=== PATIENT | male | born 1985 | race Caucasian/White ===

== ENCOUNTER 2024-02-01 01:42 | Observation (INO) | payer OTHER ==
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
[2024-02-01] MEDS: PROPOFOL 10 MG/ML 20 ML VIAL IV ONE ×2 (02:15→02:25)
[2024-02-01] MEDS ORDERED: NALOXONE 0.4 MG/ML 1 ML VIAL IV PRN (02:49)
[2024-02-01] MEDS ORDERED: ONDANSETRON 4 MG/2 ML VIAL IVP PRN (02:49)
[2024-02-01] MEDS: SODIUM CHLORIDE 0.9% 1,000 ML IV STA ×2 (02:52→03:55)
[2024-02-01] MEDS: HYDROmorphone 1 MG/ML 1 ML SYRINGE IVP STA (03:19)
[2024-02-01 04:20] LABS: Basophils # (A) 0.1 k/uL (0-0.2); Basophils % (A) 1 %; Eosinophils # (A) 0.1 k/uL (0-0.7); Eosinophils % (A) 1 %; HCT 39.8 % (39.0-53.0); Lymphocytes # (A) 1.2 k/uL (1.0-4.8); Lymphocytes % (A) 10 %; MCH 29.6 pg (25.0-35.0); MCHC 32.6 g/dL (31.0-37.0); MCV 90.9 fL (80.0-100.0); Mean Platelet Volume 9.7; Monocytes # (A) 0.9 k/uL (0-1.0); Monocytes % (A) 8 %; Neutrophils % (A) 79 %; Platelet Count 156 k/uL (150-450); RBC 4.38 m/uL (4.30-5.90); RDW 13.4 % (11.5-15.5); WBC 11.4 k/uL (3.8-10.6)
[2024-02-01 04:32] LABS: INR 0.9 (<1.2); Partial Thromboplastin Time 22.2 sec (22.0-30.0); Prothrombin Time 10.2 sec (10.0-12.5)
[2024-02-01 04:34] LABS: ALT 28 U/L (4-49); AST 34 U/L (17-59); African American GFR (CKD) >90 (>60 ml/min/1.73 sqM); Albumin 4.2 g/dL (3.5-5.0); Alkaline Phosphatase 62 U/L (38-126); Anion Gap 6 mmol/L; Blood Urea Nitrogen 24 mg/dL (9-20); Carbon Dioxide 24 mmol/L (22-30); Chloride 108 mmol/L (98-107); Glucose 113 mg/dL (74-99); Magnesium 1.9 mg/dL (1.6-2.3); Non-African American GFR(CKD) >90 (>60 ml/min/1.73 sqM); Phosphorus 3.8 mg/dL (2.5-4.5); Potassium 4.3 mmol/L (3.5-5.1); Sodium 138 mmol/L (137-145); Total Bilirubin 0.5 mg/dL (0.2-1.3); Total Protein 6.3 g/dL (6.3-8.2)
--- NOTE | 2024-02-01 04:42 | XR ---
EXAM: XR Right Shoulder Complete, 2 or More Views CLINICAL HISTORY: ITS.REASON XR Reason: reduction TECHNIQUE: Two or more views of the right shoulder. COMPARISON: No relevant prior studies available. IMPRESSION: Persistent shoulder dislocation with humeral head fracture fragment
[2024-02-01] MEDS: HYDROmorphone 1 MG/ML 1 ML SYRINGE IVP PRN (06:18)
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
[2024-02-01] MEDS ORDERED: ROPIVACAINE 5 MG/ML 30 ML VIAL ONE (08:17)
[2024-02-01] MEDS ORDERED: fentaNYL (PF) 50 MCG/ML 2 ML AMP ONE (08:17)
[2024-02-01] MEDS ORDERED: DEXAMETHASONE SOD PHOSPHATE 4 MG/ML 1 ML VIAL ONE (08:17)
[2024-02-01] MEDS ORDERED: PROPOFOL 10 MG/ML 20 ML VIAL IV ONE (08:17)
[2024-02-01] MEDS: SODIUM CHLORIDE 0.9% 1,000 ML IV ONE (08:17)
[2024-02-01] MEDS ORDERED: MIDAZOLAM 2 MG/2 ML VIAL ONE (08:17)
[2024-02-01] MEDS ORDERED: LIDOCAINE 1% INJ 10MG/ML (20 ML MDV) ONE (08:17)
--- NOTE | 2024-02-01 08:36 | P.ANPRN ---
Procedure Note - Anesthesia - Nerve Block Performed Right Interscalene Single Time Out Performed: Yes Date of Procedure: 02/01/24 Procedure Start Time: 07:50 Procedure Stop Time: 07:55 Location of Patient: PreOp Indication: Acute Post-Operative Pain, Requested by Surgeon Sedation Type: Awake Preparation: Sterile Prep, Sterile Dressing Position: Sitting Catheter: None Needle Types: Facet Needle Gauge: 21 Ultrasound used to visualize needle placement: Yes Ultrasound used to observe medication spread: Yes Injectate: 0.5% Ropivacaine (see comment for volume) (20 ml + decadron 4 mg) Blood Aspirated: No Pain Paresthesia on Injection Noted: No Resistance on Injection: Normal Image Stored and Saved: Yes Events: Uneventful and Well Tolerated
--- NOTE | 2024-02-01 08:52 | P.OP ---
Date of Procedure: 02/01/24 Preoperative Diagnosis: Current Active Problems Fracture of greater tuberosity of right humerus (Acute) Anterior dislocation of right shoulder (Acute) Hill Sachs deformity, right (Acute) Dislocation of shoulder region (Acute) Incarceration (Acute) Postoperative Diagnosis: Current Active Problems Fracture of greater tuberosity of right humerus (Acute) Anterior dislocation of right shoulder (Acute) Hill Sachs deformity, right (Acute) Dislocation of shoulder region (Acute) Incarceration (Acute) Procedure(s) Performed: 1. Closed reduction under general anesthesia right glenohumeral joint with fluoroscopy 2. application sling and swath RUE Implants: None Anesthesia: GETA Surgeon: Jarrett Chen Estimated Blood Loss (ml): 0 IV fluids (ml): 100 Urine output (ml): 0 Pathology: none sent Condition: stable Disposition: PACU Indications for Procedure: 38 yo male presents with right shoulder dislocation s/p multiple relocation attempts at outside hospital and here at [facility] unsuccessful. He presents with c/o right shoulder pain and deformity. We discussed risks and benefits. Pt seen in pre op area and all pre op protocols followed. He received a block of his RUE by anesthesia. He is ready and willing to proceed with procedure. Description of Procedure: The patient was seen and examined in the preoperative area. All preoperative protocols were followed. Informed consent was obtained risks and benefits of the procedure were discussed at length. Risks including bleeding infection damage to the surrounding tissue and risk of reoperation were discussed with the patient. Risk of anesthesia up to and including was a discussed with the patient. These are outlined in the risk reviewed. They were willing to accept these risks and all of the risks of surgery. The patient was seen and evaluated by the anesthesia team who deemed them fit for surgery. The site was marked, the patient was willing to proceed with the procedure. The patient was transferred to the operative suite by the Department of anesthesia. There were then drifted off to sleep by the department of anesthesia and Regional block with LMA anesthesia was used. Once adequate anesthesia had been obtained the patient was carefully transferred to the operative bed. All bony prominences were padded accordingly. SCDs were placed on the nonoperative lower extremities. Arms were well padded. right upper extremity was exposed a sheet was placed around the patient's torso. Preoperative briefing was done with the operative team and everyone was ready for the procedure to start. Timeout was then performed and all parties in agreement with the procedure to be performed. Fluoroscopy was used to localize the shoulder and visualize the dislocation is anterior dislocation which is personally inferior glenoid due to a large Hill- Sachs lesion versus a greater tuberosity fracture which is Displaced. Closed reduction maneuver was performed patient's glenohumeral joint was reduced congruently's is confirmed with fluoroscopic images in AP, grashay, scapular Y and [place] views. This reduced the greater tuberosity fracture down to its original position. Large Hill-Sachs lesion still visible. No other fractures visible at this time. Patient was placed in a sling and swath of the right upper extremity. The patient was then transferred back to their hospital bed. There were awakened by department of anesthesia having tolerated the procedure very well with no complications. The patient was then transported to the postoperative care unit in stable condition.
[2024-02-01 08:53] VITALS: RESP 16; TEMP 98.4
--- NOTE | 2024-02-01 08:53 | P.DS ---
Providers Date of admission: 02/01/24 02:49 Expected date of discharge: 02/01/24 Attending physician: Jarrett Chen DO Primary care physician: Nonstamandi Hospital Course: Date of admission: 02/01/2024 Date of discharge: 02/02/2024 Admission diagnosis: Right shoulder dislocation Discharge diagnosis: Same Attending physician: Dr. Chen Surgical procedures: Closed reduction right shoulder Brief history: Patient is a 38-year-old male with a history of right shoulder dislocation. At this point patient has failed conservative treatment measures and has opted to proceed with a elective closed reduction right shoulder. Hospital course: Details of patient's surgery can be found in operative report. Patient tolerated the procedure well and was subsequently transported to recovery. patient's orthopeidc and medical care was provided daily. Patient was noted to have a relatively uneventful postoperative course. Discharge condition/disposition: [facility] be discharged to [facility] in [facility] condition. Assessment: Right shoulder dislocation Procedures: Closed reduction right shoulder Patient Condition at Discharge: Good Plan - Discharge Summary Discharge Rx Participant: Yes Follow up Appointment(s)/Referral(s): Nonstaff,Physician [Primary Care Provider] - 1-2 days Activity/Diet/Wound Care/Special Instructions: 1. maintain right upper extremity in sling at all times 2. Nonweightbearing right upper extremity 3. Apply ice to the upper extremity on and off for 20 minutes at a time. Discharge Disposition: DC/TRANSFER COURT/LAW
--- NOTE | 2024-02-01 09:19 | XR ---
Fluoroscopy INDICATION: Pain FINDINGS: Fluoroscopy time: 7 seconds. Total dose area product (DAP) in uGy*m?, mGy*cm? (or similar): 0.3788 Images obtained: 5. IMPRESSION: 1. Documentation of fluoroscopy.
--- NOTE | 2024-02-01 09:50 | FL ---
Fluoroscopy INDICATION: Dislocation FINDINGS: Fluoroscopy time: Not recorded seconds. Total dose area product (DAP) in uGy*m?, mGy*cm? (or similar): Not recorded Images obtained: 0. IMPRESSION: 1. Documentation of fluoroscopy.
--- NOTE | 2024-02-01 12:00 | CT ---
EXAMINATION TYPE: CT shoulder RT wo con DATE OF EXAM: 02/01/2024 COMPARISON: None HISTORY: s/p closed reduction RT shoulder CT DLP: 823.70 mGycm Automated exposure control for dose reduction was used. Contrast: None Technique: Axial images 3 mm thick sections. Reconstructed images in the coronal and sagittal planes. FINDINGS: There is an avulsion of the greater trochanter. This may have some extent into the posterior humeral head. Fracture fragments in better alignment and positioning compared to the prereduction images. IMPRESSION: 1. FRACTURE OF THE GREATER TROCHANTER EXTENDING INTO THE POSTERIOR HUMERAL HEAD APPEARS TO BE CLOSER TO ANATOMIC POSITIONING AND ALIGNMENT FROM PREREDUCTION IMAGES. NO NEW FRACTURES IDENTIFIED.
--- NOTE | 2024-02-01 12:07 | P.PN ---
Progress Note - Text Progress Note Date: 02/01/24 Pt s/e in PACU. He is [facility] for [facility]. Instructions given for DC and Follow up. Pt in sling. Block in place RUE. VSS. AOX3 NAD. 2/4 pulses BUE/BLE. Discussed pain control in the med unit for Tylenol and motrin alternating. Ice right shoulder 20 on 20 off continuous through day. Pt understands as well as escort. Pt is stable for DC per anesthesia staff as well after assessment.
[2024-02-01 12:41] VITALS: BP 124/63; PULSE 89
== END 2024-02-01 12:33 | disposition other institution (70) ==
LOC: EC 01:42 → 6NMEDSUR 02:49 → 4SSUR 07:39
PROVIDERS: ADMIT Orthopaedic Surgery; ATTEND Orthopaedic Surgery
DX: S42.251A Displaced fracture of greater tuberosity of right humerus, initial encounter for closed fracture (principal); S43.014A Anterior dislocation of right humerus, initial encounter; Y93.72 Activity, wrestling; X58.XXXA Exposure to other specified factors, initial encounter; Z88.0 Allergy status to penicillin; Z87.891 Personal history of nicotine dependence; F43.10 Post-traumatic stress disorder, unspecified; G89.18 Other acute postprocedural pain
CPT/HCPCS: 93005; 64415; 80053; 83735; 84100; 85025; 85610; 85730; 73020; 73200; 23655; G0378 ×2; J2250; J1100; J2001; J3010; J1170; J2795; J2704